=== PATIENT | female | born 1955 | race African-American/Black ===

== ENCOUNTER 2019-04-18 14:16 | Inpatient (IN) | payer MEDICARE, MEDICAID ==
[~2019-04-18] VITALS: Ht 167.6 cm; Wt 71.2 kg
[2019-04-18] MEDS ORDERED: diphenhydrAMINE HCL 50 MG/ML VIAL IM ONE (15:00)
[2019-04-18] MEDS ORDERED: HALOPERIDOL LACTATE INJ 5 MG/ML VIAL IM ONE (15:00)
[2019-04-18] MEDS ORDERED: LORAZEPAM INJ 2 MG/ML VIAL IM ONE (15:00)
--- NOTE | 2019-04-18 15:04 | NUR ---
JIL NUR, AT BEDSIDE
[2019-04-18] MEDS ORDERED: HALOPERIDOL LACTATE INJ 5 MG/ML VIAL ONE (15:05)
[2019-04-18] MEDS ORDERED: diphenhydrAMINE HCL 50 MG/ML VIAL ONE (15:05)
[2019-04-18] MEDS ORDERED: LORAZEPAM INJ 2 MG/ML VIAL ONE (15:05)
--- NOTE | 2019-04-18 15:51 | NUR ---
URINE SENT TO STAT LAB
--- NOTE | 2019-04-18 15:55 | NUR ---
RAISIN WASHER AT BEDSIDE FOR BLOOD DRAW. PT COOPERATIVE
[2019-04-18 15:57] LABS: APPEARANCE,URINE Clear (CLEAR); BILIRUBIN,URINE Negative (NEGATIVE); BLOOD, URINE Negative Ery/uL (NEGATIVE); COLOR,URINE Yellow (YELLOW); KETONES,URINE Trace (NEGATIVE); LEUKOCYTE ESTERASE ,URINE Negative (NEGATIVE); NITRITE, URINE Negative (NEGATIVE); PH,URINE 5.5 (5.0-8.0); PROTEIN,URINE Negative (NEGATIVE); UGLUCOSE Negative (NEGATIVE); UROBILINOGEN,URINE 0.2 EU/dL (0.2)
[2019-04-18 16:01] LABS: BACTERIA,URINE Rare /HPF (None Seen); SQUAMOUS EPITHELIAL CELL,UR Few /HPF (None Seen); WBC,URINE 0-2 /HPF (0-3)
[2019-04-18 16:03] LABS: BASOPHILS # (AUTO) 0.1 /CMM (0.0-0.2); BASOPHILS % (AUTO) 0.9 % (0.0-2.0); EOSINOPHILS % (AUTO) 1.4 % (0.0-6.0); HEMATOCRIT 44 % (33-45); HEMOGLOBIN 14.3 g/dL (11.5-14.8); LYMPHOCYTES # (AUTO) 1.6 /CMM (0.8-4.8); LYMPHOCYTES % (AUTO) 19.1 % (20.0-44.0); MEAN CORPUSCULAR HGB CONC 33 g/dl (31.0-36.0); MEAN CORPUSCULAR VOLUME 89 fL (82-100); MONOCYTES # (AUTO) 0.9 /CMM (0.1-1.30); MONOCYTES % (AUTO) 10.9 % (2.0-12.0); NEUTROPHILS # (AUTO) 5.5 /CMM (1.8-8.9); NEUTROPHILS % (AUTO) 67.7 % (43.0-81.0); PLATELET COUNT (AUTO) 294 /CMM (150-450); RED BLOOD CELL COUNT(AUTO) 4.91 MIL/uL (4.0-5.2); WHITE BLOOD COUNT (AUTO) 8.1 K/uL (4.3-11.0)
[2019-04-18 16:10] LABS: CARBON DIOXIDE 28 mmol/L (21-32); CHLORIDE 109 mmol/L (98-107); CREATININE 0.8 mg/dL (0.6-1.3); GLUCOSE 111 mg/dL (74-106); POTASSIUM 4.2 mmol/L (3.5-5.1); SODIUM SERUM 145 mmol/L (136-145); UREA NITROGEN, BLOOD 14 mg/dL (7-18)
[2019-04-18 16:17] LABS: ALANINE AMINOTRANSFERASE 24 U/L (12-78); ALBUMIN 3.3 g/dL (3.4-5.0); ALCOHOL, BLOOD < 3 mg/dL (0-0); ALKALINE PHOSPHATASE 101 U/L (46-116); ASPARTATE AMINOTRANSFERASE 21 U/L (15-37); BILIRUBIN,TOTAL 0.2 mg/dL (0.2-1.0); SALICYLATE 3.3 mg/dL (2.8-20.0); TOTAL PROTEIN, SERUM 7.4 g/dL (6.4-8.2)
--- NOTE | 2019-04-18 16:29 | NUR ---
REPORT GIVEN TO RASTA PRADO FOR [id number]
--- NOTE | 2019-04-18 17:10 | NUR ---
PT TAKEN TO FLOOR VIA WC
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
[2019-04-18 20:48] VITALS: BP 156/96
[2019-04-18 21:00] VITALS: BP 145/87
[2019-04-18] MEDS ORDERED: MAG HYDROX/AL HYDROX/SIMETH 30 ML UDC PO PRN (21:00)
[2019-04-18] MEDS ORDERED: clonazePAM 0.5 MG TABLET PO PRN ×2 (21:00→21:30)
[2019-04-18] MEDS ORDERED: TEMAZEPAM 7.5 MG CAPSULE PO PRN (21:00)
[2019-04-18] MEDS ORDERED: MAGNESIUM HYDROXIDE 30 ML UDC PO PRN (21:00)
[2019-04-18] MEDS ORDERED: ACETAMINOPHEN 325 MG TABLET PO PRN (21:00)
[2019-04-19 08:00] VITALS: BP 155/79
[2019-04-19] MEDS: NICOTINE PATCH (21MG) 21 MG PATCH.TD24 TD SCH (09:00)
--- NOTE | 2019-04-19 09:40 | NUR ---
GPS/RN-NOTES PATIENT REFUSED NICOTINE PATCH. STATED" NO NICOTINE PATCH". OFFERED X3
--- NOTE | 2019-04-19 10:36 | NUR ---
GPS/RN-NOTES PATIENT REFUSED LAB DRAW DESPITE EXPLANATIONS RISK AND BENEFITS. LAB STAFF ATTEMPT SEVERAL TIMES.
[2019-04-19 16:15] VITALS: BP 148/86
--- NOTE | 2019-04-19 21:30 | NUR ---
GPS RN NOTE: PATIENT REFUSED PM MEDS, EXPLAINED THE RISK AND BENEFITS, PATIENT STILL REFUSED AND ANGRILY STATED "I DONT WANT ANY MEDICATION". REDIRECT THE PATIENT. WILL CONTINUE TO MONITOR [id number] FOR SAFETY
[2019-04-19] MEDS: OLANZAPINE 5 MG/TAB.RAPDIS PO SCH (22:00)
[2019-04-20] MEDS: NICOTINE PATCH (21MG) 21 MG PATCH.TD24 TD SCH (09:00)
--- NOTE | 2019-04-20 11:20 | NUR ---
INITIAL DISCHARGE PLAN: Patient is homeless and unable to provide for her own food, detention, or clothing due to her current mental state. Pt needs SNF placement. SW will help form a safe and proper discharge plan in collaboration with .
--- NOTE | 2019-04-20 15:16 | NUR ---
GROUP NOTE: Pt was present but did not participate due to pt responding to auditory hallucinations and speaking to self. Pt got up in the middle of the group and began picking up papers from the table and then sat elsewhere away from the group. Pt did not share her name or make eye contact.
--- NOTE | 2019-04-20 17:49 | NUR ---
GPS/RN-NOTES PATIENT IN DAY ROOM EATING DINNER ,GUARDED,NOTED WITH EASILY ANGRY BEHAVIOR, NO ACUTE DISTRESS NOTED. ALL NEEDS ATTENDED AND ANTICIPATED. ENDORSED TO THE CHARGE NURSE.
[2019-04-20 20:02] VITALS: BP 144/71
[2019-04-20] MEDS: OLANZAPINE 5 MG/TAB.RAPDIS PO SCH (22:00)
[2019-04-21 08:11] VITALS: BP 143/78
[2019-04-21] MEDS: NICOTINE PATCH (21MG) 21 MG PATCH.TD24 TD SCH (09:00)
--- NOTE | 2019-04-21 10:00 | NUR ---
Arrived and received patient in pacing around in the dining room. Patient is alert and oriented x1 to self. Patient is confused, paranoid, unpredictable and easily agitated. Patient is not medication compliant. Encouraged patient to take medication as prescribed. Redirected and reoriented patient as needed. Q15 minute safety and behavior checks as needed. Encouraged patient to attend group activities with peers. Patient is in bedroom resting with no distress noted at this time. Will continue with plan of care.
[2019-04-21 16:32] VITALS: BP 135/74
[2019-04-21 19:58] VITALS: BP 147/77
[2019-04-21] MEDS: OLANZAPINE 5 MG/TAB.RAPDIS PO SCH (21:02)
--- NOTE | 2019-04-21 21:03 | NUR ---
GPS/CODING CLERK NOTES: PT. REFUSED HS MEDS. OFFERED 3X. EXPLAINED RISK AND BENEFITS. PT. STILL REFUSED.
[2019-04-22 08:00] VITALS: BP 114/64
[2019-04-22] MEDS: NICOTINE PATCH (21MG) 21 MG PATCH.TD24 TD SCH (09:00)
--- NOTE | 2019-04-22 14:34 | NUR ---
GROUP NOTE: Pt is unable to participate in group, pt is mentally preoccupied and responding to internal stimuli. Pt is speaking to self and is unpredictable. Pt is also refusing medication.
[2019-04-22 16:00] VITALS: BP 127/69
[2019-04-22 20:00] VITALS: BP 121/59
[2019-04-22] MEDS: OLANZAPINE 5 MG/TAB.RAPDIS PO SCH (22:00)
[2019-04-23 07:09] LABS: ALBUMIN 3.1 g/dL (3.4-5.0); CREATININE 0.9 mg/dL (0.6-1.3); MAGNESIUM 2.2 mg/dL (1.8-2.4); PHOSPHORUS 4.1 mg/dL (2.5-4.9); POTASSIUM 4.4 mmol/L (3.5-5.1)
[2019-04-23 07:10] LABS: BASOPHILS % (AUTO) 0.7 % (0.0-2.0); EOSINOPHILS % (AUTO) 2.8 % (0.0-6.0); HEMATOCRIT 44 % (33-45); HEMOGLOBIN 14.3 g/dL (11.5-14.8); LYMPHOCYTES # (AUTO) 1.9 /CMM (0.8-4.8); LYMPHOCYTES % (AUTO) 29.3 % (20.0-44.0); MEAN CORPUSCULAR HGB CONC 33 g/dl (31.0-36.0); MEAN CORPUSCULAR VOLUME 88 fL (82-100); MONOCYTES # (AUTO) 0.9 /CMM (0.1-1.30); MONOCYTES % (AUTO) 14.1 % (2.0-12.0); NEUTROPHILS # (AUTO) 3.5 /CMM (1.8-8.9); NEUTROPHILS % (AUTO) 53.1 % (43.0-81.0); PLATELET COUNT (AUTO) 260 /CMM (150-450); RED BLOOD CELL COUNT(AUTO) 4.98 MIL/uL (4.0-5.2); WHITE BLOOD COUNT (AUTO) 6.6 K/uL (4.3-11.0)
[2019-04-23] MEDS: NICOTINE PATCH (21MG) 21 MG PATCH.TD24 TD SCH (09:00)
[2019-04-23 09:22] LABS: THYROID STIMULATING HORMONE 1.45 uIU/mL (0.358-3.74)
[2019-04-23 16:00] VITALS: BP 137/79
[2019-04-23] MEDS: OLANZAPINE 5 MG/TAB.RAPDIS PO SCH (21:56)
--- NOTE | 2019-04-23 22:30 | NUR ---
GPS-RN PATIENT REFUSED SCHEDULED MEDICATION. DESPITE OF EDUCATION ON RISKS AND BENEFITS BUT PT. STILL REFUSED.
[2019-04-24] MEDS: NICOTINE PATCH (21MG) 21 MG PATCH.TD24 TD SCH (09:00)
--- NOTE | 2019-04-24 18:11 | NUR ---
RN GPS NOTES PT AWAKE, EATING DINNER AT THE DINING ROOM, ALERT TO SELF, WITH EPISODES OF BEING HYPERVERBAL AND WITH FLIGHT OF IDEAS, SAFETY PRECAUTIONS OBSERVED, ALL NEEDS ATTENDED.
[2019-04-24] MEDS: OLANZAPINE 5 MG/TAB.RAPDIS PO SCH (21:15)
--- NOTE | 2019-04-24 21:56 | NUR ---
GPS-RN PATIENT REFUSED SCHEDULED ZYPREXA. DESPITE OF EDUCATION ON RISKS AND BENEFITS, BUT PT. STILL REFUSED. WILL CONTINUE TO MONITOR.
[2019-04-25 08:00] VITALS: BP 106/52
[2019-04-25] MEDS: NICOTINE PATCH (21MG) 21 MG PATCH.TD24 TD SCH (09:00)
[2019-04-25 16:00] VITALS: BP 159/88
[2019-04-25] MEDS ORDERED: OLANZAPINE 10 MG VIAL IM ONE (20:00)
--- NOTE | 2019-04-25 20:20 | NUR ---
GPS RN NOTE: PATIENT WANDERING HALLWAY YELLING AND VERBALLY AGGRESSIVE. CALLED MD AND RECEIVED NEW ORDERS FOR ZYPREXA 5MG IM ONCE. ORDER NOTED AND CARRIED OUT. ZYPREXA 5MG IM GIVEN TO LEFT BUTTOCK WITH ASSIST OF SCHOOL BUS TECHNICIAN AND CHARGE NURSE. WILL CONTINUE TO MONITOR.
[2019-04-25 20:27] VITALS: BP 143/59
[2019-04-25] MEDS: OLANZAPINE 5 MG/TAB.RAPDIS PO SCH (22:00)
--- NOTE | 2019-04-25 23:00 | NUR ---
GPS RN NOTE: PATIENT SLEEPING IN BED, NO ACUTE DISTRESS NOTED AFTER ZYPREXA IM SHOT. WILL CONTINUE TO MONITOR.
[2019-04-26] MEDS: NICOTINE PATCH (21MG) 21 MG PATCH.TD24 TD SCH (08:35)
--- NOTE | 2019-04-26 14:35 | NUR ---
Group Note: Pt is unable to participate in group, pt is mentally preoccupied and responding to internal stimuli. Pt is speaking to self and is unpredictable.
[2019-04-26] MEDS: HALOPERIDOL 5 MG TABLET PO SCH (17:00)
[2019-04-26] MEDS: HALOPERIDOL LACTATE INJ 5 MG/ML VIAL IM PRN (18:08)
[2019-04-26 19:58] VITALS: BP 146/63
[2019-04-27] MEDS: NICOTINE PATCH (21MG) 21 MG PATCH.TD24 TD SCH (09:00)
[2019-04-27] MEDS: HALOPERIDOL 5 MG TABLET PO SCH ×2 (09:00→17:22)
[2019-04-27] MEDS: HALOPERIDOL LACTATE INJ 5 MG/ML VIAL IM PRN (09:31)
--- NOTE | 2019-04-27 09:58 | NUR ---
GPS/RN-NOTES PATIENT REFUSED HALDOL 5MG P.O . STATED" I WILL NOT TAKE ANY PILL ,LEAVE ME ALONE". PATIENT WAS RIESE ,HALDOL 2.5MG IM GIVEN ORDERED.GIVEN AT RIGHT BUTTOCK,WELL TOLERATED.
--- NOTE | 2019-04-27 13:55 | NUR ---
BRADY faxed SNF referral to [facility] Address: [address] [place] [address] for review.
--- NOTE | 2019-04-27 15:32 | NUR ---
GROUP NOTE: Pt is unable to participate in group, pt is mentally preoccupied and responding to internal stimuli. Pt is speaking to self and is unpredictable.
--- NOTE | 2019-04-27 15:35 | NUR ---
SW received a call from claudia Ziegler from [facility] Address: [address] [place] [address] stating pt has been accepted to the facility.
--- NOTE | 2019-04-27 15:53 | NUR ---
Pt is unable to participate in group, pt is mentally preoccupied and responding to internal stimuli. Pt is speaking to self and is unpredictable.
[2019-04-27 16:00] VITALS: BP 147/95
[2019-04-27 20:02] VITALS: BP 115/76
[2019-04-28 08:00] VITALS: BP 109/64
[2019-04-28] MEDS: HALOPERIDOL 5 MG TABLET PO SCH ×2 (08:18→17:02)
[2019-04-28] MEDS: NICOTINE PATCH (21MG) 21 MG PATCH.TD24 TD SCH (08:24)
--- NOTE | 2019-04-28 08:25 | NUR ---
GPS/RN-NOTES PATIENT REFUSED NICOTINE PATCH. STATED" NO I DON'T NEED IT". OFFERED X3
--- NOTE | 2019-04-28 15:25 | NUR ---
GROUP NOTE: Pt is unable to participate in group, pt is mentally preoccupied and responding to internal stimuli. Pt is speaking to self and is unpredictable.
--- NOTE | 2019-04-28 15:45 | NUR ---
BRADY received a call from pts son Milind [phone] stating that he has not spoken to pt in years and wanted to talk to her regarding her discharge. Milind was unable to provide BRADY with collateral information or confirm pt is homeless as he stated he has not been in contact with pt in many years. Addendum: 04/29/19 at 1005 by DAVE ABREU BRADY informed him that pt was going to be [facility] to a local prison and son agreed.
[2019-04-28 16:25] VITALS: BP 130/88
[2019-04-28 20:00] VITALS: BP 116/73
[2019-04-29] MEDS: NICOTINE PATCH (21MG) 21 MG PATCH.TD24 TD SCH (09:00)
[2019-04-29] MEDS: HALOPERIDOL 5 MG TABLET PO SCH ×2 (09:37→17:27)
--- NOTE | 2019-04-29 14:35 | NUR ---
SW attempted to contact pts son Milind [phone] to discuss pts discharge. BRADY was unable to leave a voicemail as the mailbox was full.
--- NOTE | 2019-04-29 14:37 | NUR ---
SUPPORTIVE COUNSELING: SW spoke with pt regarding her discharge plan, pt stated that she did not want to go to a SNF and that she wanted to be discharged to a motel on Thursday05/02/19. SW informed her that she would discuss pts discharge with her psychiatrist.
--- NOTE | 2019-04-29 14:47 | NUR ---
Group Note: Pt is unable to participate in group therapy on 04/29/19 at 1:30PM. Pt is mentally preoccupied and responding to internal stimuli. Pt is speaking to self and is unpredictable.
[2019-04-29 16:00] VITALS: BP 109/80
[2019-04-29 20:00] VITALS: BP 132/55
[2019-04-29 22:00] VITALS: BP 125/68
[2019-04-30 08:00] VITALS: BP 121/63
[2019-04-30] MEDS: HALOPERIDOL 5 MG TABLET PO SCH ×2 (08:07→16:47)
[2019-04-30] MEDS: NICOTINE PATCH (21MG) 21 MG PATCH.TD24 TD SCH (09:00)
[2019-04-30] MEDS ORDERED: HALOPERIDOL DECANOATE IM 100 MG/ML AMPUL IM ONE (13:00)
[2019-04-30 16:00] VITALS: BP 149/65
[2019-04-30 19:45] VITALS: BP 130/60
[2019-05-01 08:00] VITALS: BP 130/70
[2019-05-01] MEDS: NICOTINE PATCH (21MG) 21 MG PATCH.TD24 TD SCH (08:07)
[2019-05-01] MEDS: HALOPERIDOL 5 MG TABLET PO SCH ×2 (08:07→16:48)
[2019-05-01 16:00] VITALS: BP 114/71
[2019-05-01 20:00] VITALS: BP 127/64
[2019-05-02 08:00] VITALS: BP 132/58
[2019-05-02] MEDS: NICOTINE PATCH (21MG) 21 MG PATCH.TD24 TD SCH ×2 (09:00→10:53)
[2019-05-02] MEDS: HALOPERIDOL 5 MG TABLET PO SCH (10:53)
[2019-05-02] MEDS: METFORMIN 500 MG TABLET PO SCH ×2 (11:40→16:24)
--- NOTE | 2019-05-02 14:46 | NUR ---
SUPPORTIVE COUNSELING: SW spoke with pt regarding her discharge plan, pt refused to be discharged to a SNF and stated she wanted to be discharged to [address] [address]. SW informed her that per psychiatrist she will be discharged tomorrow Thursday05/03/19, pt agreed with her discharge date.
--- NOTE | 2019-05-02 15:00 | NUR ---
GROUP NOTE: Pt was present in group but did not participate pt stated, "I'll listen but that will condemn my spirit." Pt then walked away from group when others began sharing.
[2019-05-02 16:00] VITALS: BP 117/58
--- NOTE | 2019-05-02 18:32 | NUR ---
RN END NOTES PT WANDERS IN HALLWAY BUT NO AGGRESSIVE BEHAVIOR NOTED. NO HALLUCINATION OR DELUSIONS NOTED; DENIES SUICIDAL IDEATION. COOPERATIVE AND MED COMPLIANT. INTERACTS WITH GROUP.
[2019-05-02 19:54] VITALS: BP 117/49
[2019-05-02 21:30] VITALS: BP 122/61
[2019-05-02] MEDS ORDERED: HALOPERIDOL 5 MG TABLET PO SCH (22:00)
[2019-05-02] MEDS ORDERED: BENZTROPINE MESYLATE (1 MG) 1 MG TABLET PO SCH (22:00)
[2019-05-03 08:00] VITALS: BP 153/58
[2019-05-03] MEDS: NICOTINE PATCH (21MG) 21 MG PATCH.TD24 TD SCH (08:47)
[2019-05-03] MEDS: METFORMIN 500 MG TABLET PO SCH (08:47)
--- NOTE | 2019-05-03 11:59 | NUR ---
Pt discharge by dr. nielsen. french polisher agrees with discharge. pt going back to [facility] [address] [facility] [address]. pt is alert oriented x 3 and ambulatory. calm and cooperative. denies s/i and/or h/i at time of discharge. vital sign stable. no acute distress noted. exitcare completed. refuse skin assessment. written prescription with patient. belongings returned to patient. pt given tap card for transportation back to her hotel. pt left in stable condition.
--- NOTE | 2019-05-03 12:04 | NUR ---
DISCHARGE NOTE: Pt will be discharged at 1200pm via public transportation (TAP CARD) to [facility] [address] [facility] [address]. Pt has no family to notify. Pt refused SNF placement and sated she wanted to get her social security money from [employer] [facility] [address] [facility] [address] [place] in [place] and that is why she wanted to be discharged to [facility]. Pt stated she often stays at that hotel and the flatbed owner operator already knows her. Pts mood was euthymic with congruent affect. Pt denied visual/auditory hallucinations and denied suicidal/homicidal ideation. Pt was alert and oriented x4 at time of discharge. Pt signed the homeless waiver and also was provided with referrals to [facility] [address] [facility] [id number] and was encouraged to present on Thursday05/04/19 before 5pm for an intake. Pt was also provided a referral to [address] [id number] . The multidisciplinary exitcare form was done, printed, signed, and given to the patient.
== END 2019-05-03 12:00 | disposition home or self-care (01) | DRG 885 ==
LOC: ER 14:33 → GPS 20:15
PROVIDERS: ADMIT Psychiatry & Neurology Psychiatry; ATTEND Internal Medicine
DX: F29 Unspecified psychosis not due to a substance or known physiological condition (principal); F01.50 Vascular dementia, unspecified severity, without behavioral disturbance, psychotic disturbance, mood disturbance, and anxiety; E44.1 Mild protein-calorie malnutrition; F41.9 Anxiety disorder, unspecified; Z91.19 Patient's noncompliance with other medical treatment and regimen; Z91.14 Patient's other noncompliance with medication regimen; I10 Essential (primary) hypertension; E11.9 Type 2 diabetes mellitus without complications; Z86.59 Personal history of other mental and behavioral disorders; R45.850 Homicidal ideations
CPT/HCPCS: 36415; 80048-TC; 80061-TC; 80076-TC; 80305; 81000-TC; 82040-TC; 83735-TC; 84100-TC; 84443-TC; 85025-TC; 97116-TC; 97530-TC; G0480; J1200; J1630; J1631; J2060; J3490